=== PATIENT | male | born 1970 | race Caucasian/White ===

== ENCOUNTER 2016-08-21 14:17 | Emergency (ER) | payer BC ==
[2016-08-21] MEDS ORDERED: Ondansetron 4 MG/2 ML SDV IVPUSH ONE (14:25)
[2016-08-21] MEDS ORDERED: ceFAZolin 1 GM in Premix Bag 1 BAG IV ONE ×2 (14:27→15:18)
--- NOTE | 2016-08-21 14:33 | EDM.PDOC ---
ED HPI GENERAL MEDICAL PROBLEM - General Chief Complaint: Upper Extremity Injury/Pain Stated Complaint: [facility] Time Seen by Provider: 08/21/16 14:18 Source of Information: Reports: Patient, EMS History Limitations: Reports: No Limitations - History of Present Illness INITIAL COMMENTS - FREE TEXT/NARRATIVE: Patient is a 46-year-old male who presents to the ED complaining of partial amputation of the left thumb. Patient was utilizing a miter saw and Cut the tip of his thumb off. States it did squirt blood that was controlled with direct pressure. States he did become woozy at the sight of blood and passed out for a short period of time. Patient did awake quickly with no headache, vision changes, chest pain, shortness of breath, abdominal pain, n/t, or any additional complaints. Patient did feel slightly warm and was diaphoretic. He was also mildly nauseated with no emesis. States it was associated with the sight of blood. States he did not hit his head. 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 During transport patient received 2 mg of Dilaudid IV and also Zofran 4 mg IVP. Presents to the ED with minimal pain but remains mildly nauseated, pale, with mild diaphoresis. States symptoms are improving. Blood loss was minimal per patient. Tetanus status is up-to-date. Denies any previous past medical history and currently taking no medications. Surgical history noncontributory. Denies any smoking, alcohol use, or recreational drug use. Onset: Today, Sudden Left Hand Pain Score (Numeric/FACES): 4 - Related Data Allergies Allergy/AdvReac Type Severity Reaction Status Date / Time No Known Allergies Allergy Verified 08/21/16 14:22 Home Meds: Home Meds . [No Known Home Meds] 08/21/16 [History] Review of Systems - Review of Systems Review Of Systems: ROS reveals no pertinent complaints other than HPI. ED EXAM, GENERAL - Physical Exam Exam: See Below Exam Limited By: No Limitations General Appearance: Alert, WD/WN, No Apparent Distress Eye Exam: Bilateral Eye: EOMI, PERRL Ears: Normal External Exam, Hearing Grossly Normal Nose: Normal Inspection Throat/Mouth: Normal Inspection, Normal Oropharynx, Normal Voice, No Airway Compromise Head: Atraumatic, Normocephalic Neck: Normal Inspection, Supple, Non-Tender, Full Range of Motion. No: Lymphadenopathy (L), Lymphadenopathy (R) Respiratory/Chest: No Respiratory Distress, Lungs Clear, Normal Breath Sounds, No Accessory Muscle Use, Chest Non-Tender Cardiovascular: Normal Peripheral Pulses, Regular Rate, Rhythm Peripheral Pulses: 2+: Radial (L) GI/Abdominal: Normal Bowel Sounds, Soft, Non-Tender, No Organomegaly, No Distention Back Exam: Normal Inspection, Full Range of Motion. No: Paraspinal Tenderness, Vertebral Tenderness Extremities: Other (left hand bandaged. No pain to the remaining extremities. Dressing removed. Amputation of the left thumb distal of MC joint. No bleeding present. ) Neurological: Alert, Oriented, CN II-XII Intact, Normal Cognition, No Motor/ Sensory Deficits Psychiatric: Normal Affect, Normal Mood Skin Exam: Warm, Dry, Intact, Normal Color Course - Vital Signs Last Recorded V/S: Last Vital Signs Temp 96.7 F 08/21/16 15:30 Pulse 66 08/21/16 15:55 Resp 12 08/21/16 15:55 BP 114/66 08/21/16 15:55 Pulse Ox 98 08/21/16 15:55 - Orders/Labs/Meds Orders: Active Orders 24 hr Category Date Time Status EKG Documentation Completion [RC] STAT Care 08/21/16 14:24 Active CXR [Chest 1V Frontal] [CR] Stat Exams 08/21/16 14:27 Taken Fingers Thumb Lt FA [CR] Stat Exams 08/21/16 14:28 Taken Labs: Laboratory Tests 08/21/16 08/21/16 08/21/16 Range/Units 15:20 15:20 15:20 WBC 8.24 (4.23-9.07) K/mm3 RBC 4.32 L (4.63-6.08) M/mm3 Hgb 13.1 L (13.7-17.5) gm/L Hct 38.3 L (40.1-51.0) % MCV 88.7 (79.0-92.2) fl MCH 30.3 (25.7-32.2) pg MCHC 34.2 (32.2-35.5) g/dl RDW Std Deviation 41.8 (35.1-43.9) fL Plt Count 185 (163-337) K/mm3 MPV 9.6 (9.4-12.3) fl Neut % (Auto) 80.1 H (34.0-67.9) % Lymph % (Auto) 12.4 L (21.8-53.1) % [place] % (Auto) 6.9 (5.3-12.2) % Eos % (Auto) 0.4 L (0.8-7.0) Baso % (Auto) 0.1 (0.1-1.2) % Neut # (Auto) 6.60 H (1.78-5.38) K/mm3 Lymph # (Auto) 1.02 L (1.32-3.57) K/mm3 [place] # (Auto) 0.57 (0.30-0.82) K/mm3 Eos # (Auto) 0.03 L (0.04-0.54) K/mm3 Baso # (Auto) 0.01 (0.01-0.08) K/mm3 APTT 22 (22-36) SECONDS Sodium 144 (136-145) mEq/L Potassium 3.7 (3.5-5.1) mEq/L Chloride 110 H (98-107) mEq/L Carbon Dioxide 25 (21-32) mEq/L Anion Gap 12.7 (5-15) BUN 13 (7-18) mg/dL Creatinine 0.9 (0.7-1.3) mg/dL Est Cr Clr Drug Dosing 107.02 mL/min Estimated GFR (MDRD) > 60 (>60) mL/min BUN/Creatinine Ratio 14.4 (14-18) Glucose 127 H (74-106) mg/dL Calcium 8.5 (8.5-10.1) mg/dL Total Bilirubin 0.4 (0.2-1.0) mg/dL AST 24 (15-37) U/L ALT 27 (16-63) U/L Alkaline Phosphatase 58 (46-116) U/L Troponin I (0.00-0.056) ng/mL Total Protein 6.4 (6.4-8.2) g/dl Albumin 3.9 (3.4-5.0) g/dl Globulin 2.5 gm/dL Albumin/Globulin Ratio 1.6 (1-2) Blood Type Gel Antibody Screen 08/21/16 08/21/16 Range/Units 15:20 15:20 WBC (4.23-9.07) K/mm3 RBC (4.63-6.08) M/mm3 Hgb (13.7-17.5) gm/L Hct (40.1-51.0) % MCV (79.0-92.2) fl MCH (25.7-32.2) pg MCHC (32.2-35.5) g/dl RDW Std Deviation (35.1-43.9) fL Plt Count (163-337) K/mm3 MPV (9.4-12.3) fl Neut % (Auto) (34.0-67.9) % Lymph % (Auto) (21.8-53.1) % Dod[place]idge % (Auto) (5.3-12.2) % Eos % (Auto) (0.8-7.0) Baso % (Auto) (0.1-1.2) % Neut # (Auto) (1.78-5.38) K/mm3 Lymph # (Auto) (1.32-3.57) K/mm3 Dod[place]idge # (Auto) (0.30-0.82) K/mm3 Eos # (Auto) (0.04-0.54) K/mm3 Baso # (Auto) (0.01-0.08) K/mm3 APTT (22-36) SECONDS Sodium (136-145) mEq/L Potassium (3.5-5.1) mEq/L Chloride (98-107) mEq/L Carbon Dioxide (21-32) mEq/L Anion Gap (5-15) BUN (7-18) mg/dL Creatinine (0.7-1.3) mg/dL Est Cr Clr Drug Dosing mL/min Estimated GFR (MDRD) (>60) mL/min BUN/Creatinine Ratio (14-18) Glucose (74-106) mg/dL Calcium (8.5-10.1) mg/dL Total Bilirubin (0.2-1.0) mg/dL AST (15-37) U/L ALT (16-63) U/L Alkaline Phosphatase (46-116) U/L Troponin I 0.021 (0.00-0.056) ng/mL Total Protein (6.4-8.2) g/dl Albumin (3.4-5.0) g/dl Globulin gm/dL Albumin/Globulin Ratio (1-2) Blood Type O POSITIVE Gel Antibody Screen Negative Meds: Medications Discontinued Medications Generic Name Dose Route Start Last Admin Trade Name Lizz PRN Reason Stop Dose Admin Diphenhydramine HCl 25 mg 08/21/16 15:45 08/21/16 15:52 Benadryl IVPUSH 08/21/16 15:46 25 mg ONETIME ONE Administration Cefazolin Sodium/Dextrose 1 gm 25 mls @ 100 mls/hr 08/21/16 14:27 08/21/16 14 :46 / Premix IV 08/21/16 14:56 100 mls/hr ONETIME ONE Administration Cefazolin Sodium/Dextrose 1 gm 50 mls @ 100 mls/hr 08/21/16 15:18 08/21/16 15 :25 / Premix IV 08/21/16 15:47 100 mls/hr ONETIME ONE Administration Metoclopramide HCl 5 mg 08/21/16 15:45 08/21/16 15:50 Reglan IVPUSH 08/21/16 15:46 5 mg ONETIME ONE Administration Ondansetron HCl 4 mg 08/21/16 14:25 08/21/16 14:43 Zofran IVPUSH 08/21/16 14:26 4 mg ONETIME ONE Administration - Re-Assessments/Exams Free Text/Narrative Re-Assessment/Exam: IV was started by EMS. Ordered basic labs, EKG, chest x-ray, and x-ray of the left thumb in preparation for surgery. Tetanus status is up-to-date. Patient remains mildly nauseated order additional Zofran 4 mg IVP. In addition ordered Ancef 1 g IVP. Will contact on-call orthopedic surgeon. EKG: First-degree AV block at a rate of [address] changes noted. Unable to compare to prior EKGs none available. [id number] Pérez suggested transferring patient to [facility] for treatment. 08/21/16 14:[address] Watson, decision support analyst orthopedic surgeon [facility]. He will get back to me with hand doctor that will be accepting. 1500 Dr. Watson called back and requests additional 1 g of Ancef, place thumb on/ or in saline on ice. Go to the [facility] where they will see the patient in preparation for surgery. All transfer paperwork has been completed. Ambulance has been notified. 08/21/16 15:46 Ambulance has arrived. Ordered reglan 5mgIVP and benadryl 25mgIVP due to persistent nausea. Labs reviewed white blood cell count 8.24, hemoglobin is 13.1, She panel is essentially normal. Troponin 0.021. 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
[2016-08-21] MEDS ORDERED: diphenhydrAMINE 50 MG/ML SDV IVPUSH ONE (15:45)
[2016-08-21] MEDS ORDERED: Metoclopramide 10 MG/2 ML SDV IVPUSH ONE (15:45)
[2016-08-21 16:03] VITALS: BP 114/66
--- NOTE | 2016-08-22 08:21 | CR ---
Left thumb: Four views of the left thumb were obtained. Amputation is seen at the base of the proximal phalanx. Fracture is seen within the base with no significant displacement. First metacarpal appears intact. No additional bony abnormality is appreciated on this study. Impression: 1. Thumb amputation as noted above. Fracture is seen within the remaining base of the proximal phalanx of the thumb. Diagnostic code #3
--- NOTE | 2016-08-22 08:21 | CR ---
Chest: Frontal view of the chest was obtained. Comparison: No previous study. Heart size and mediastinum are within normal limits. Lungs are clear. Bony structures are grossly intact. Impression: 1. Nothing acute is identified on frontal chest x-ray. Diagnostic code #1
== END 2016-08-21 16:00 ==
LOC: JD.ED 14:17 → SUPCPDRO 14:17 → JD.ED 16:00
DX: S68.012A Complete traumatic metacarpophalangeal amputation of left thumb, initial encounter (principal); W29.8XXA Contact with other powered hand tools and household machinery, initial encounter
CPT/HCPCS: 36415; 71010; 73140; 80053; 84484; 85025; 85730; 86850; 86900; 86901; 93005; 96365; 96375; 99285; J0690; J1200; J2405; J2765; 99284

== ENCOUNTER 2018-04-24 19:48 | Emergency (ER) | payer BC, OTHER ==
[2018-04-24 19:58] VITALS: BP 130/83
[2018-04-24] MEDS ORDERED: Fluorescein 0.6 MG Ophth Strip EYERT ONE (20:53)
[2018-04-24] MEDS ORDERED: Proparacaine 0.5% Ophth Soln 15 ML Bottle EYERT STA (20:53)
--- NOTE | 2018-04-24 21:25 | EDM.PDOC ---
ED HPI GENERAL MEDICAL PROBLEM - General Chief Complaint: Eye Problems Stated Complaint: EYE PROBLEM Time Seen by Provider: 04/24/18 20:46 Source of Information: Reports: Patient, Family (), RN Notes Reviewed History Limitations: Reports: No Limitations - History of Present Illness INITIAL COMMENTS - FREE TEXT/NARRATIVE: The patient states that he was grinding metal around 16:00 this afternoon, at home. He states that he was not wearing safety goggles, and felt like a piece of metal got into his right eye. He presents with a foreign body sensation. He denies having pain, rather, he states that it is irritating. He has slightly blurry vision in his right eye. He is otherwise uninjured. The patient reports a prior right eye injury with a wood splinter. The patient does not ordinarily wear glasses or contacts. The patient's PCP is at the [facility]. The patient's vaccinations are up-to-date. Treatments LINE REPAIRER: Reports: Other (see below) Other Treatments LINE REPAIRER: eye flushes right eye Pain Score (Numeric/FACES): 2 - Related Data Allergies Allergy/AdvReac Type Severity Reaction Status Date / Time No Known Allergies Allergy Verified 04/24/18 19:58 Home Meds: Home Meds Ketorolac [Acular 0.5% Ophth Soln] 1 drop EYERT Q6H PRN #1 bottle 04/24/18 [Rx] Past Medical History - Past Surgical History HEENT Surgical History: Reports: LASIK (bilateral, 2003), Oral Surgery (wisdom teeth extraction) Musculoskeletal Surgical History: Reports: Amputation (partial, left thumb, 08/21) Social & Family History - Family History Family Medical History: Noncontributory - Tobacco Use Smoking Status *Q: Never Smoker Second Hand Smoke Exposure: No - Caffeine Use Caffeine Use: Reports: Coffee - Alcohol Use Alcohol Use History: Yes Alcohol Use Frequency: Socially - Recreational Drug Use Recreational Drug Use: No - Living Situation & Occupation Living situation: Reports: , with Spouse, with Family (2 kids) Occupation: Employed ([employer] [place] ED ROS GENERAL - Review of Systems Review Of Systems: ROS reveals no pertinent complaints other than HPI. ED EXAM GENERAL W FULL EYE - Physical Exam Exam: See Below Exam Limited By: No Limitations General Appearance: Alert, WD/WN, No Apparent Distress Eye Exam: Bilateral Eye: EOMI, Normal Inspection, PERRL Eyelids: Right: Lid Everted for Exam, Bilateral: Normal Appearance Conjunctiva & Sclera: Bilateral: Normal Appearance Cornea Exam: Right: Corneal Abrasion (12:00 position), Examined with Flourescein , Left: Normal Appearance Extraocular Movements: Bilateral: Intact Pupils: Normal Accommodation Pupillary Size: Bilateral: 5 mm Pupillary Reaction: Bilateral: Brisk Anterior Chamber: Bilateral: Normal Appearance Course - Vital Signs Last Recorded V/S: Last Vital Signs Temp 36.6 C 04/24/18 19:54 Pulse 67 04/24/18 19:54 Resp 18 04/24/18 19:54 BP 130/83 04/24/18 19:54 Pulse Ox 98 04/24/18 19:54 - Orders/Labs/Meds Meds: Medications Discontinued Medications Generic Name Dose Route Start Last Admin Trade Name Freq PRN Reason Stop Dose Admin Fluorescein Sodium 0.6 mg 04/24/18 20:53 04/24/18 20:59 Ful-Raysa EYERT 04/24/18 20:54 0.6 mg ONETIME ONE Administration Proparacaine HCl 1 ml 04/24/18 20:53 04/24/18 20:59 Proparacaine 0.5% Ophth Soln EYERT 04/24/18 20:54 1 ml ONETIME STA Administration - Re-Assessments/Exams Free Text/Narrative Re-Assessment/Exam: 04/24/18 21:20 The patient's right eye was examined with fluorescein and a Wood's lamp, as well as with a slit lamp. The patient appears to have a small corneal abrasion at the 12 o'clock position, but I did not find any embedded metal in the cornea. I will prescribe Acular. Departure - Departure Time of Disposition: 21:21 Disposition: Home, Self-Care 01 Condition: Good Clinical Impression: Corneal abrasion - Discharge Information *PRESCRIPTION DRUG MONITORING PROGRAM REVIEWED*: Not Applicable *COPY OF PRESCRIPTION DRUG MONITORING REPORT IN PATIENT CYRUS: Not Applicable Prescriptions: Ketorolac [Acular 0.5% Ophth Soln] 1 drop EYERT Q6H PRN #1 bottle PRN Reason: Pain Instructions: Corneal Abrasion, [id number] Referrals: Rita Elam BLISTER RUST ERADICATOR [Nurse Practitioner] - Forms: ED Department Discharge Additional Instructions: You were seen in the emergency room after possibly getting some metal in your right eye. On evaluation in the ER, you appear to have a small corneal abrasion at the 12 o 'clock position, but no metal was found embedded in your eye. A prescription for the [id number] medicine Acular has been sent to the [facility], located in the [facility] grocery store. Instill 1 drop of Acular in your right eye every 6 hours, as needed for pain. If you continue to have eye pain after 3 days, please follow-up with an eye doctor. If any other problems, please do not hesitate to return to the ER.
== END 2018-04-24 21:29 | disposition home or self-care (01) ==
LOC: JD.ED 19:48
DX: S05.01XA Injury of conjunctiva and corneal abrasion without foreign body, right eye, initial encounter (principal); X58.XXXA Exposure to other specified factors, initial encounter; Y92.009 Unspecified place in unspecified non-institutional (private) residence as the place of occurrence of the external cause
CPT/HCPCS: 99283

== ENCOUNTER 2021-02-16 07:04 | Day surgery (SDC) | payer BC ==
[2021-02-16] MEDS: Polymyxin B/Trimethoprim 10 ML Bottle EYERT SCH ×4 (07:31→09:11)
[2021-02-16] MEDS: Brimonidine 0.2% Ophth Soln 5 ML Bottle EYERT SCH ×4 (07:35→09:11)
--- NOTE | 2021-02-16 07:38 | PCM.PREANE ---
Preanesthetic Assessment - Anesthesia/Transfusion/Family Hx Anesthesia History: Prior Anesthesia Without Reaction Family History of Anesthesia Reaction: No Transfusion History: No Prior Transfusion(s) Intubation History: Unknown - Review of Systems General: No Symptoms Pulmonary: No Symptoms Cardiovascular: No Symptoms Gastrointestinal: No Symptoms Neurological: No Symptoms Other: Reports: None - Physical Assessment NPO Status Date: 02/15/21 NPO Status Time: 19:00 ASA Class: 1 Mental Status: Alert & Oriented x3 Airway Class: Mallampati = 1 Dentition: Reports: Normal Dentition Thyro-Mental Finger Breadths: 3 Mouth Opening Finger Breadths: 3 ROM/Head Extension: Full Lungs: Clear to Auscultation, Normal Respiratory Effort Cardiovascular: Regular Rate, Regular Rhythm - Allergies Allergies/Adverse Reactions: Allergies Allergy/AdvReac Type Severity Reaction Status Date / Time No Known Allergies Allergy Verified 02/15/21 18:03 - Acknowledgements Anesthesia Type Planned: MAC Pt an Appropriate Candidate for the Planned Anesthesia: Yes Alternatives and Risks of Anesthesia Discussed w Pt/Guardian: Yes Pt/Guardian Understands and Agrees with Anesthesia Plan: Yes PreAnesthesia Questionnaire - Past Health History Medical/Surgical History: Denies Medical/Surgical History HEENT History: Reports: Cataract Cardiovascular History: Reports: None Respiratory History: Reports: None Gastrointestinal History: Reports: None Genitourinary History: Reports: None Musculoskeletal History: Reports: None Other Musculoskeletal History: partial thumb amputation Neurological History: Reports: None Psychiatric History: Reports: None Endocrine/Metabolic History: Reports: None - Past Surgical History HEENT Surgical History: Reports: LASIK, Oral Surgery Musculoskeletal Surgical History: Reports: Amputation ((L) thumb) - SUBSTANCE USE Tobacco Use Status *Q: Never Tobacco User - HOME MEDS Home Medications: Home Meds Acetylcarnitine HCl [[id number]] 02/15/21 [History] Ascorbic Acid [Vitamin C] 02/15/21 [History] Cholecalciferol (Vitamin D3) [Vitamin D3] 02/15/21 [History] Dextran 70/Hypromellose/PF [Artificial Tears Drops] 02/15/21 [History] Hydroxychloroquine [Plaquenil] 02/15/21 [History] Turmeric 02/15/21 [History] - CURRENT (IN HOUSE) MEDS Current Meds: Current Medications Brimonidine Tartrate (Brimonidine 0.2% Ophth Soln 5 Ml Bottle) 0 ml EYERT ASDIRECTED RANGEL Stop: 02/16/21 18:00 Cefuroxime Sodium (Cefuroxime 10 Mg/Ml Syringe) 0 mg EYERT ASDIRECTED RANGEL Stop: 02/16/21 18:00 Lidocaine HCl (Lidocaine 1% Pf 2 Ml Sdv) 0 ml INJECT ASDIRECTED RANGEL Stop: 02/16/21 18:00 Phenylephrine HCl (Phenylephrine 2.5% Ophth Soln 2 Ml Bot) 0 ml EYERT ASDIRECTED RANGEL Stop: 02/16/21 18:00 Pilocarpine HCl (Pilocarpine 4% Ophth Soln 15 Ml Bot) 0 ml EYERT ASDIRECTED RANGEL Stop: 02/16/21 18:00 Polymyxin/Trimethoprim Sulfate (Polymyxin B/Trimethoprim 10 Ml Bottle) 0 ml EYERT ASDIRECTED RANGEL Stop: 02/16/21 18:00 Last Admin: 02/16/21 07:31 Dose: 1 drop Documented by: Tetracaine HCl (Tetracaine Hcl/Pf 0.5% 4 Ml Bottle) 0 ml EYEBOTH ASDIRECTED RANGEL Stop: 02/16/21 18:00 Tropicamide (Tropicamide 1% Ophth Soln 15 Ml Bottle) 0 ml EYERT ASDIRECTED RANGEL Stop: 02/16/21 18:00
[2021-02-16] MEDS: Phenylephrine 2.5% Ophth Soln 2 ML Bot EYERT SCH ×6 (07:39→08:53)
[2021-02-16] MEDS: Tropicamide 1% Ophth Soln 15 ML Bottle EYERT SCH ×4 (07:43→08:15)
[2021-02-16] MEDS: Tetracaine HCl/PF 0.5% 4 ML Bottle EYEBOTH SCH ×5 (08:29→08:53)
[2021-02-16] MEDS: Lidocaine 1% PF 2 ML SDV INJECT SCH ×2 (08:50→08:54)
[2021-02-16] MEDS: Cefuroxime 10 MG/ML SYRINGE EYERT SCH ×2 (08:54→09:10)
[2021-02-16] MEDS: Pilocarpine 4% Ophth Soln 15 ML Bot EYERT SCH ×2 (08:54→09:11)
--- NOTE | 2021-02-16 09:10 | PCM48HPAN ---
Post Anesthesia Note - EVALUATION WITHIN 48HRS OF ANESTHETIC Vital Signs in Normal Range: Yes Patient Participated in Evaluation: Yes Respiratory Function Stable: Yes Airway Patent: Yes Cardiovascular Function Stable: Yes Hydration Status Stable: Yes Pain Control Satisfactory: Yes Nausea and Vomiting Control Satisfactory: Yes Mental Status Recovered: Yes
[2021-02-16 09:33] VITALS: BP 115/68; PULSE 67
== END 2021-02-16 09:20 | disposition home or self-care (01) ==
LOC: JD.SDS 07:04
PROVIDERS: ATTEND Ophthalmology
DX: H25.813 Combined forms of age-related cataract, bilateral (principal); J45.909 Unspecified asthma, uncomplicated; Z98.890 Other specified postprocedural states
CPT/HCPCS: 66984; J0697; V2632

== ENCOUNTER 2021-06-01 14:27 | Day surgery (SDC) | payer BC ==
[2021-06-01] MEDS: Polymyxin B/Trimethoprim 10 ML Bottle EYELF SCH ×4 (13:55→17:48)
[2021-06-01] MEDS: Brimonidine 0.2% Ophth Soln 5 ML Bottle EYELF SCH ×4 (14:00→17:48)
[2021-06-01] MEDS: Phenylephrine 2.5% Ophth Soln 2 ML Bot EYELF SCH ×6 (14:04→17:47)
[2021-06-01] MEDS: Tropicamide 1% Ophth Soln 15 ML Bottle EYELF SCH ×4 (14:10→14:54)
[2021-06-01] MEDS: Tetracaine HCl/PF 0.5% 4 ML Bottle EYEBOTH SCH ×5 (15:08→17:47)
[2021-06-01] MEDS: Lidocaine 1% PF 2 ML SDV INJECT SCH ×2 (15:30→17:47)
[2021-06-01] MEDS: Cefuroxime 10 MG/ML SYRINGE EYELF SCH ×2 (15:42→17:48)
[2021-06-01] MEDS: Pilocarpine 4% Ophth Soln 15 ML Bot EYELF SCH ×2 (15:43→17:48)
[2021-06-01 16:04] VITALS: BP 117/63; PULSE 62
== END 2021-06-01 15:49 | disposition home or self-care (01) ==
LOC: JD.SDS 14:27
PROVIDERS: ATTEND Ophthalmology
DX: H25.812 Combined forms of age-related cataract, left eye (principal); J45.909 Unspecified asthma, uncomplicated; Z98.890 Other specified postprocedural states; Z79.899 Other long term (current) drug therapy
CPT/HCPCS: 66984; J0697; V2632

== ENCOUNTER 2023-09-05 07:06 | Day surgery (SDC) | payer BC ==
[~2023-09-05 07:06] MED LIST: Sodium Chloride 0.9% 10 ML Syringe FLUSH PRN; Sodium Chloride 0.9% 10 ML Syringe FLUSH SCH
[2023-09-05] MEDS: Lactated Ringers 1,000 ML IV SCH (07:28)
[2023-09-05] MEDS ORDERED: Propofol 200 MG/20 ML SDV ONE ×2 (08:02→08:16)
[2023-09-05] MEDS ORDERED: ePHEDrine 50 MG/ML SDV ONE (08:17)
[2023-09-05 08:44] VITALS: PULSE 72
[2023-09-05 09:39] VITALS: BP 109/70
== END 2023-09-05 09:25 | disposition home or self-care (01) ==
LOC: JD.SDS 07:06
PROVIDERS: ATTEND Surgery
DX: D12.0 Benign neoplasm of cecum (principal); K57.31 Diverticulosis of large intestine without perforation or abscess with bleeding; K64.0 First degree hemorrhoids; Z79.899 Other long term (current) drug therapy
CPT/HCPCS: 45380; J2704; J7120; 00811; J3490